=== PATIENT | female | born 1985 | race Caucasian/White ===

== ENCOUNTER 2024-12-15 14:33 | Emergency (ER) | payer BC, SELFPAY ==
[2024-12-15 14:35] VITALS: BMI 30.7
[2024-12-15 15:02] VITALS: BP 145/92; PULSE 84; RESP 20; TEMP 36.9; O2SAT 99
--- NOTE | 2024-12-15 15:07 | XR_ITS ---
Examination: Pelvic ultrasound, transabdominal, complete Technique: Transabdominal ultrasound of the pelvis performed using grayscale imaging Date and time of exam: December 15, 2024 1526 hours INDICATIONS: Pelvic pain and vaginal bleeding onset today FINDINGS: Uterus 8.6 cm endometrial stripe 1.2 cm No uterine mass or intrauterine gestation Right ovary 3.6 cm arterial flow Left ovary 2.9 cm arterial flow IMPRESSION: Negative study
--- NOTE | 2024-12-15 15:10 | PD.EDRME ---
Rapid Medical Screening Exam RME Arrival date/time: 12/15/24 14:33 39-year-old female with no known medical history presents to the emergency room with a chief complaint of vaginal bleeding x 1 day. I have greeted and performed a focused initial assessment of this patient. A comprehensive ED assessment and evaluation of the patient, analysis of all test results, and completion of the medical decision making process will be conducted by additional ED providers. Chief Complaint: Vaginal Bleeding Time Seen by Provider: 12/15/24 14:59 Vital signs: Vital Signs Temperature 98.4 F 12/15/24 15:02 Pulse Rate 84 12/15/24 15:02 Respiratory Rate 20 12/15/24 15:02 Blood Pressure 145/92 H 12/15/24 15:02 Pulse Oximetry (%) 99 12/15/24 15:02 Oxygen Delivery Method Room Air 12/15/24 15:02 Vital signs reviewed by provider: Yes
[2024-12-15 15:37] LABS: Collection Type, Urine Clean Catch
[2024-12-15 15:46] LABS: Basophils # (Auto) 0.1 Thou/mm3 (0.0-0.2); Basophils % (Auto) 1 % (0-2.5); Eosinophils # (Auto) 0.2 Thou/mm3 (0.0-0.5); Eosinophils % (Auto) 2 % (0-10); Hematocrit 38.3 % (36.0-46.0); Hemoglobin 13.3 g/dL (12.0-16.0); Immature Granulocytes % (Auto) 0 % (0-0); Immature Granulocytes Auto 0.02 Thou/mm3 (0.00-0.00); Lymphocytes # (Auto) 2.7 Thou/mm3 (1.0-4.8); Lymphocytes % (Auto) 30 % (10-50); Mean Corpuscular HGB Conc 34.7 g/dl (31.0-37.0); Mean Corpuscular Hemoglobin 31.1 pg (25.0-35.0); Mean Corpuscular Volume 90 fL (80-100); Monocytes # (Auto) 0.7 Thou/mm3 (0.0-0.8); Monocytes % (Auto) 8 % (0-12); Neutrophils # (Auto) 5.4 Thou/mm3 (1.8-7.7); Neutrophils % (Auto) 60 % (37-80); Nucleated Red Blood Cell % 0 /100 WBC (0); Platelet Count 360 Thou/mm3 (140-440); RDW Standard Deviation 38.5 fL (36.4-46.3); Red Blood Count 4.27 Miln/mm3 (4.00-5.20)
[2024-12-15 15:50] LABS: HCG,Qualitative Serum Negative
[2024-12-15 15:55] LABS: Alanine Aminotransferase 25 U/L (10-49); Albumin, Serum 4.5 gm/dL (3.5-5.0); Albumin/Globulin Ratio 1.5 (1.2-2.2); Alkaline Phosphatase 108 U/L (46-116); Anion Gap 8 (7-16); Aspartate Amino Transferase 19 U/L (0-34); BUN/Creatinine Ratio 13 Ratio (12-20); Bilirubin,Total 0.4 mg/dL (0.3-1.2); Blood Urea Nitrogen 9 mg/dL (9-23); Calcium 9.3 mg/dL (8.3-10.6); Calcium (Corrected) 9.3 mg/dL (8.5-10.1); Carbon Dioxide 25.5 mMol/L (20.0-31.0); Chloride 109 mMol/L (98-107); Creatinine (Component) 0.7 mg/dL (0.6-1.3); Estimated Creatinine Clearance 116.6 mL/min (>60); Globulin 3.1 gm/dL (2.3-3.5); Glucose 124 mg/dL (74-106); Osmolality,Calculated 282 (275-295); Potassium 4.4 mMol/L (3.4-5.1); Sodium 142 mMol/L (136-145); Total Protein 7.6 gm/dL (5.7-8.2); eGFR > 60 See Note
[2024-12-15 15:56] LABS: Bilirubin,Urine Negative (Negative); Blood,Urine 3+ (Negative); Clarity,Urine Clear (Clear/Hazy); Color,Urine Yellow (Lt Yel-Yel); Culture Indicated,Urine Not Indicated; Glucose, Urine Negative (Negative); Ketones,Urine Negative (Negative); Leukocyte Esterase,Urine Negative (Negative); Nitrite,Urine Negative (Negative); Protein,Urine Negative (Neg - Trace); RBC,Urine 663 /hpf (0-3); Specific Gravity,Urine 1.022 (1.001-1.035); Squamous Epithelial Cell,Urine 1 /hpf (0-5); Urobilinogen,Urine Negative mg/dL (0.0-1.0); WBC,Urine 1 /hpf (0-5)
[2024-12-15 17:19] LABS: Partial Thromboplastin Time 25.8 Seconds (22.0-36.0); Prothrombin Time 10.6 Seconds (9.0-12.2)
[2024-12-15 20:15] VITALS: BP 152/97; PULSE 81; RESP 16; TEMP 36.7; O2SAT 100
[2024-12-15] MEDS: HYDROcodone/APAP 7.5/325 TABLET 1 TAB PO (21:17)
--- NOTE | 2024-12-15 21:18 | EDNOTE_ITS ---
ED OB Contraction Preg RMI/HPI General Chief complaint: Vaginal Bleeding Stated complaint: HEAVY VAG BLEEDING TODAY Time Seen by Provider: 12/15/24 14:59 Arrival date/time: 12/15/24 14:33 39-year-old female presents to the ED with a complaint of severe vaginal bleeding and left-sided pelvic pain. Her normal cycles are usually 1 super tampon every 4 hours. Today she is having to change her super tampon every hour. She has had painful menstrual cycles in the past but never this bad. Her pain is a 10/10. She denies any fever or chills, nausea or vomiting, diarrhea or constipation. Mode of arrival: ambulatory Limitations: no limitations RME / HPI RME / HPI Narrative: 12/15/24 14:33 39-year-old female with no known medical history presents to the emergency room with a chief complaint of vaginal bleeding x 1 day. I have greeted and performed a focused initial assessment of this patient. A comprehensive ED assessment and evaluation of the patient, analysis of all test results, and completion of the medical decision making process will be conducted by additional ED providers. Related Data Previous Rx's ?Medication ?Instructions ?Recorded meloxicam 7.5 mg tablet 7.5 mg PO QDAY PRN pain #30 tabs 12/15/24 Allergies Allergy/AdvReac Type Severity Reaction Status Date / Time Sulfa (Sulfonamide Allergy Hives Verified 12/15/24 14:34 Antibiotics) Review of Systems Review of Systems Systems Reviewed: All systems reviewed, normal except as documented Past Medical History Social History SMOKING STATUS: Never smoker ED Exam Narrative Physical exam: 39-year-old female, alert and oriented, mild to moderate acute distress due to left pelvic pain. Lungs are clear, regular rate and rhythm without murmurs, abdomen is soft. No tenderness to the right lower quadrant, right upper quadrant, left upper quadrant. Moderate tenderness to the left lower quadr ant/pelvic region. No suprapubic tenderness. General Limitations: Present no limitations Course Course Course Narrative: Labs reveal a normal white count, normal H&H and normal platelet count. Coags are normal. Serum hCG is negative. CMP reveals a minimally elevated chloride of 109, normal renal function, normal LFTs. Elevated glucose of 124. Urinalysis reveals 3+ blood, negative nitrates, negative leukocyte esterase, 663 RBCs, 1 WBC, no bacteria. Blood bank tests reveal O+ blood with negative antibodies. Pelvic ultrasound reveals: Uterus 8.6 cm endometrial stripe 1.2 cm. No uterine mass or intrauterine gestation. Right ovary 3.6 cm arterial flow. Left ovary 2.9 cm arterial flow. Negative for acute process. Patient was given Toradol 30 mg IM as well as hydrocodone 7.5 mg p.o. Quality Measures none Orders Category Date Time Status US pelvic complete Stat Exams 12/15/24 15:07 Completed CBC Stat Lab 12/15/24 15:16 Completed CMP [Comprehensive Metabolic Panel] Stat Lab 12/15/24 15:16 Completed HCG,Qualitative Serum Stat Lab 12/15/24 15:16 Completed PT [Prothrombin Time with INR] Stat Lab 12/15/24 15:16 Completed PTT [Partial Thromboplastin Time] Stat Lab 12/15/24 15:16 Completed Type and Screen Stat Lab 12/15/24 15:16 Completed UA, C/S IF [Urinalysis, C/S if Indicated] Stat Lab 12/15/24 15:30 Completed HYDROcodone*/APAP 7.5/325 [Boley 7.5/325] Med 12/15/24 21:12 Discontinued 1 tab PO X1 ONE Ketorolac Inj [Toradol Inj] Med 12/15/24 21:12 Discontinued 30 mg IM X1 ONE Vital Signs Vital signs: Vital Signs Temperature 98.4 F 12/15/24 15:02 Pulse Rate 84 12/15/24 15:02 Respiratory Rate 20 12/15/24 15:02 Blood Pressure 145/92 H 12/15/24 15:02 Pulse Oximetry (%) 99 12/15/24 15:02 Oxygen Delivery Method Room Air 12/15/24 15:02 Vaginal Bleeding MDM Narrative MDM Narrative: 39-year-old female presents to the ED with a complaint of severe vaginal blee ding and left-sided pelvic pain. Her normal cycles are usually 1 super tampon every 4 hours. Today she is having to change her super tampon every hour. She has had painful menstrual cycles in the past but never this bad. Her pain is a 10/10. She denies any fever or chills, nausea or vomiting, diarrhea or constipation. 39-year-old female, alert and oriented, mild to moderate acute distress due to left pelvic pain. Lungs are clear, regular rate and rhythm without murmurs, abdomen is soft. No tenderness to the right lower quadrant, right upper quadrant, left upper quadrant. Moderate tenderness to the left lower quadrant/pelvic region. No suprapubic tenderness. Labs reveal a normal white count, normal H&H and normal platelet count. Coags are normal. Serum hCG is negative. CMP reveals a minimally elevated chloride of 109, normal renal function, normal LFTs. Elevated glucose of 124. Urinalysis reveals 3+ blood, negative nitrates, negative leukocyte esterase, 663 RBCs, 1 WBC, no bacteria. Blood bank tests reveal O+ blood with negative antibodies. Pelvic ultrasound reveals: Uterus 8.6 cm endometrial stripe 1.2 cm. No uterine mass or intrauterine gestation. Right ovary 3.6 cm arterial flow. Left ovary 2.9 cm arterial flow. Negative for acute process. Patient was given Toradol 30 mg IM as well as a hydrocodone 7.5 mg p.o. She will be discharged home in stable and improved condition with a prescription for meloxicam. Patient data External records reviewed:: None Clinical information provided by:: patient Social determinants that could affect healthcare access:: none Patient has the following chronic illnesses:: N/A How is presenting disease/condition affected by chronic disease/condition?: no chronic disease Evaluation data The following diagnostics were reviewed and interpreted by me:: lab results and radiology exam(s) Lab and/or radiology exams considered but not ordered:: N/A Interpretation Summary: As noted above Medications / Prescriptions Medications or Prescriptions considered but not ordered:: N/A Medication administrations:: Medication Administration History Discontinued Medications Hydrocodone Bitart/Acetaminophen (Hydrocodone/Apap 7.5/325 Tablet) 1 tab PO X1 ONE Stop: 12/15/24 21:13 Last Admin: 12/15/24 21:17 Dose: 1 tab Documented By: SE Ketorolac Tromethamine (Ketorolac Inj 60 Mg/2 Ml Vial) 30 mg IM X1 ONE Stop: 12/15/24 21:13 Last Admin: 12/15/24 21:19 Dose: 30 mg Documented By: SE As noted above Consultations Consultation(s) initiated? (list below): No Diagnosis Vaginal Bleeding Differential Diagnosis: missed , dysfunctional uterine bleeding, menometrorrhagia, ectopic without intrauterine and vaginal bleeding Most likely diagnosis given after review of the tests above:: Dysfunctional uterine bleeding Admission Indicated Admission indicated?: not indicated Explain why admission is indicated or not indicated:: Patient is stable for discharge Admission Request Was there a request for admission?: No Disposition Plan Disposition Plan: Discharge Discharge Attestation Discharge Attestation: The patient and all family members were given an opportunity to ask questions and understood the discharge instructions. Discharge instructions specifically effects, indications for sooner follow up or return to the emergency department, and the expected course of current diagnosis. Patient condition: Stable Discharge Plan Plan Patient Disposition: HOME (Self Care) Discharge Disposition comment: Stable and improved Prescriptions/Referrals Prescriptions/Med Rec: New meloxicam 7.5 mg tablet 7.5 mg PO QDAY PRN (Reason: pain) Qty: 30 0RF Rx Instructions: Take 1 to 2 tablets, 1 time daily depending on the severity of your pain. Do not take more than 15 mg/day. Referrals: Bola Dudley MD [Primary Care Provider] - In 1 week Problem List Clinical Impression: Dysfunctional uterine bleeding, Dysmenorrhea Patient/Caregiver Discharge Instructions Education Materials: ED Dysfunctional Uterine Bleeding, ED MENSTRUAL CRAMPING Additional Instructions: Follow-up with your [employer] [employer] for further workup and evaluation of possible endometriosis. You may need an exploratory laparotomy to determine if endometriosis is present. Follow-up with your primary care physician in 24 to 48 hours. Return to the ED for any new or worsening symptoms. Print Language: Indonesian Stand Alone Forms: Kristen Award Info., Patient Portal Info Letter JAYMIE/JUAN Supervising Physician MARCO ANTONIO Supervising Physician: Dr Levin
[2024-12-15] MEDS: KETOROLAC INJ 60 MG/2 ML VIAL 30 MG IM (21:19)
== END 2024-12-15 21:30 | disposition home or self-care (01) ==
PROVIDERS: Nurse Practitioner Family; Emergency Provider Family Medicine; PCP Family Medicine
DX: N93.8 Other specified abnormal uterine and vaginal bleeding (principal); N94.6 Dysmenorrhea, unspecified
CPT/HCPCS: 36415; 76856; 80053; 81001; 84703; 85025; 85610; 85730; 86850; 86900; 86901; 96372; 99284; J1885; A9270